=== PATIENT | male | born 2005 | race Hispanic/Latino ===

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

== ENCOUNTER 2025-01-13 07:13 | Emergency (ER) | payer OTHER, SELFPAY ==
--- OUTSIDE RECORDS SUMMARY | 2025-01-13 07:16 | XMS REPORT | Continuity of Care Document ---
Author Name Unknown Address [address] [place] [address] [place] [id number] Care Team Providers Care Customer Program Manager Name Role Phone Unavailable Unavailable Unavailable Encounters Start Date/Time End Date/Time Encounter Type Admission Type Attending Clinicians Care Facility Care Department Encounter ID Source 2020-06-05 00:00:00 2020-06-05 00:00:00 Outpatient [facility] [id number] [facility]
[2025-01-13 08:16] LABS: Absolute Lymphocytes (CBC) 2.5 K/uL (0.7-4.9); Hematocrit 40.3 % (39.6-49.0); Hemoglobin 13.8 g/dL (13.6-17.9); MCH 31.3 pg (27.0-35.0); MCHC 34.3 g/dL (32.0-36.0); MCV 91.1 fL (80-100); MPV 7.6 fL (7.6-11.3); Nucleated RBC Absolute Count 0.0 (0-0); Nucleated Red Blood Cells % 0.0 % (0-0); RBC Red Blood Cell Count 4.42 M/uL (4.33-5.43); White Blood Count 7.00 thou/uL (4.3-10.9)
[2025-01-13 08:32] LABS: Anion Gap 6.2 mEq/L (5.0-15.0); BUN Blood Urea Nitrogen 6.0 mg/dL (7-18); Glucose Level 93.0 mg/dL (74-106); Potassium 4.2 mEq/L (3.5-5.1)
--- NOTE | 2025-01-13 08:47 | ER ---
Nurse's Notes [facility] Name: Abdon Santos III Age: 19 yrs Sex: Male : 2005 Arrival Date: 01/13/2025 Time: 07:13 Bed 6 Private MD: Diagnosis: Rectal bleeding Presentation: 01/13 07:21 Chief complaint: Patient states: 3 episodes of rectal bleeding after having BM last ss night. Pt reports this has occurred before, and was seen at an ER in [place], but was told everything was normal. Denies pain at this time. Coronavirus screen: Client denies travel out of the [place] in the last 14 days. Ebola Screen: Patient denies exposure to infectious person. Patient denies travel to an Ebola-affected area in the 21 days before illness onset. Initial Sepsis Screen: Does the patient meet any 2 criteria? No. Patient's initial sepsis screen is negative. Does the patient have a suspected source of infection? No. Patient's initial sepsis screen is negative. Risk Assessment: Do you want to hurt yourself or someone else? Patient reports no desire to harm self or others. Onset of symptoms was January 12, 2025. 07:21 Method Of Arrival: Ambulatory ss 07:21 Acuity: BRANDON 3 ss Triage Assessment: 07:21 General: Appears in no apparent distress. Behavior is cooperative, appropriate for age, bp anxious. Pain: Denies pain. EENT: No deficits noted. Neuro: No deficits noted. Cardiovascular: No deficits noted. Respiratory: No deficits noted. GI: Reports rectal bleeding. : No signs and/or symptoms were reported regarding the genitourinary system. Derm: No deficits noted. Musculoskeletal: No deficits noted. Historical: - Allergies: 07:23 No Known Allergies; ss - Home Meds: 07:23 None [Active]; ss - PMHx: 07:23 None; ss - PSHx: 07:23 None; ss - Immunization history:: Adult Immunizations unknown. - Infectious Disease History:: Denies. - Social history:: Smoking status: Reported history of juuling and/or vaping. Screenin:44 [facility] ED Fall Risk Assessment (Adult) History of falling in the last 3 months, ph including since admission No falls in past 3 months (0 pts) Confusion or Disorientation No (0 pts) Intoxicated or Sedated No (0 pts) Impaired Gait No (0 pts) Mobility Assist Device Used No (0 pt) Altered Elimination No (0 pt) Score/Fall Risk Level 0 - 2 = Low Risk Oriented to surroundings, Maintained a safe environment, Hourly rounding (assess needs \T\ fall precautionary measures) done. Abuse screen: Denies threats or abuse. Denies injuries from another. Nutritional screening: No deficits noted. Tuberculosis screening: No symptoms or risk factors identified. Assessment: 07:43 General: Appears in no apparent distress. comfortable, well groomed, Behavior is calm, ph cooperative, appropriate for age. Pain: Denies pain. Neuro: Level of Consciousness is awake, alert, obeys commands, Oriented to person, place, time, situation. Cardiovascular: Capillary refill < 3 seconds in bilateral fingers Patient's skin is warm and dry. Respiratory: Airway is patent Respiratory effort is even, unlabored. GI: Reports rectal bleeding. Derm: Skin is pink, warm \T\ dry. Musculoskeletal: Circulation, motion, and sensation intact. Vital Signs: 07:21 Pulse 66; Resp 15; Pulse Ox 99% on R/A; Weight 77.11 kg; Height 5 ft. 6 in. ; Pain 0/10;ss 07:46 BP 132 / 86; Temp 97.8; ph 08:54 BP 121 / 79; Pulse 67; Resp 16; Temp 98; Pulse Ox 100% ; bp 07:21 Body Mass Index 27.44 (77.11 kg, 167.64 cm) ss 07:21 Pain Scale: Adult ss ED Course: 07:15 Patient arrived in ED. mr 07:15 Nazario Couch DO is Attending Physician. ms3 07:23 Triage completed. ss 07:23 Arm band placed on right wrist. ss 07:34 Zachary Diane, RN is Primary Nurse. bp 07:43 Served as a rubber compounder during rectal exam. ph 07:44 Patient has correct armband on for positive identification. Bed in low position. Call ph light in reach. Side rails up X 1. Pulse ox on. NIBP on. 08:08 Initial lab(s) drawn, by me, sent to lab. Inserted saline lock: 20 gauge in right bp antecubital area, using aseptic technique. Blood collected. Flushed with 10 mL NS. 08:46 Brandon Angeles MD is Referral Physician. ms3 08:54 IV discontinued, intact, bleeding controlled, No redness/swelling at site. Pressure bp dressing applied. Administered Medications: No medications were administered Medication: 07:44 VIS not applicable for this client. ph Outcome: 08:46 Discharge ordered by . ms3 08:54 Discharged to home ambulatory, with family, bp 08:54 Condition: stable 08:54 Discharge instructions given to patient, Instructed on discharge instructions, follow up and referral plans. Demonstrated understanding of instructions, follow-up care, 08:55 Patient left the ED. bp Signatures: Fanny Mejia, Bradley Reg mr Alicia Gould, RN RN ss Mimi Purcell RN RN ph Zachary Diane RN RN bp Nazario Couch DO DO ms3
--- NOTE | 2025-01-13 08:47 | EDPHYS ---
Physician Documentation [facility] Name: Abdon Santos III Age: 19 yrs Sex: Male : 2005 Arrival Date: 01/13/2025 Time: 07:13 Bed 6 Private MD: ED Physician Nazario Couch HPI: 01/13 08:05 This 19 yrs old Male presents to ER via Ambulatory with complaints of Rectal ms3 Bleeding. 08:05 19-year-old male with no past medical history presents to the emergency department for ms3 rectal bleeding for 3 episodes last night. Patient denies abdominal pain, diarrhea, nausea, vomiting, fevers, chills. Patient states he has had rectal bleeding intermittently for a while. Patient has seen other emergency departments in [place] where his workup was negative.. Historical: - Allergies: 07:23 No Known Allergies; ss - Home Meds: 07:23 None [Active]; ss - PMHx: 07:23 None; ss - PSHx: 07:23 None; ss - Immunization history:: Adult Immunizations unknown. - Infectious Disease History:: Denies. - Social history:: Smoking status: Reported history of juuling and/or vaping. ROS: 08:05 Constitutional: Negative for fever, and chills. Cardiovascular: Negative for chest ms3 pain, and palpitations. Respiratory: Negative for shortness of breath, cough, wheezing, and pleuritic chest pain, 08:05 MS/Extremity: Negative for injury and deformity, Skin: Negative for injury, rash, and discoloration, 08:05 Abdomen/GI: Positive for rectal bleeding, Exam: 08:05 Constitutional: This is a well developed, well nourished patient who is awake, alert, ms3 and in no acute distress. Cardiovascular: Regular rate and rhythm with a normal S1 and S2. No gallops, murmurs, or rubs. Normal PMI, no JVD. No pulse deficits. Respiratory: Lungs have equal breath sounds bilaterally, clear to auscultation and percussion. No rales, rhonchi or wheezes noted. No increased work of breathing, no retractions or nasal flaring. Skin: Warm, dry with normal turgor. Normal color with no rashes, no lesions, and no evidence of cellulitis. MS/ Extremity: Pulses equal, no cyanosis. Neurovascular intact. Full, normal range of motion. 08:05 Abdomen/GI: Inspection: abdomen appears normal, Bowel sounds: normal, in all quadrants, Palpation: abdomen is soft and non-tender, in all quadrants, Rectal exam: is unremarkable, rectal tone normal, Stool: brown, No gross blood noted on rectal exam, mass, is not appreciated, swelling, is not appreciated, tenderness, is not appreciated, the exam is chaperoned by the nurse, Vital Signs: 07:21 Pulse 66; Resp 15; Pulse Ox 99% on R/A; Weight 77.11 kg; Height 5 ft. 6 in. ; Pain 0/10;ss 07:46 BP 132 / 86; Temp 97.8; ph 08:54 BP 121 / 79; Pulse 67; Resp 16; Temp 98; Pulse Ox 100% ; bp 07:21 Body Mass Index 27.44 (77.11 kg, 167.64 cm) ss 07:21 Pain Scale: Adult ss MDM: 07:16 Medical Screening Exam initiated ms3 08:07 Differential diagnosis: hemorrhoids, Anemia versus rectal mass. ms3 08:49 Data reviewed: vital signs, nurses notes, lab test result(s), and as a result, I will ms3 discharge patient. Counseling: I had a detailed discussion with the patient and/or guardian regarding the historical points, exam findings, and any diagnostic results supporting the discharge/admit diagnosis, lab results, the need for outpatient follow up, to return to the emergency department if symptoms worsen or persist or if there are any questions or concerns that arise at home. Special discussion: I discussed with the patient/guardian in detail that at this point there is no indication for admission to the hospital. It is understood, however, that if the symptoms persist or worsen the patient needs to return immediately for re-evaluation. ED course: CBC without anemia. Patient without bloody bowel movements in the emergency department, stool brown on rectal exam. Patient's vital signs remained stable. Patient's abdomen is benign. Patient to follow-up with Dr. Vasquez in 2 to 3 days for reevaluation. All questions were answered. Return precautions discussed include worsening symptoms, or any other concerns.. 01/13 07:55 Order name: CBC with Diff; Complete Time: 08:42 ms3 01/13 07:55 Order name: BMP; Complete Time: 08:42 ms3 Administered Medications: No medications were administered Disposition Summary: 01/13/25 08:46 Discharge Ordered Notes: Location: Home ms3 Condition: Stable ms3 Diagnosis - Rectal bleeding ms3 Followup: ms3 - With: Brandon Angeles MD - When: 2 - 3 days - Reason: Recheck today's complaints Discharge Instructions: - Discharge Summary Sheet ms3 - Rectal Bleeding, [id number] ms3 Forms: - Medication Reconciliation Form ms3 - Antibiotic Education ms3 - Prescription Opioid Use ms3 - Patient Portal Instructions ms3 - Leadership Thank You Letter ms3 - Work release form bc6 Signatures: Dispatcher [employer] EDMS Alicia Gould RN RN ss Mimi Purcell RN RN ph Nazario Couch, DO ms3 Corrections: (The following items were deleted from the chart) 07:55 07:55 CBC+H.LAB.BRZ ordered. EDMS EDMS 07:55 07:55 BASIC METABOLIC PANEL+C.LAB.BRZ ordered. EDMS EDMS
[2025-01-13 10:12] VITALS: O2SAT 100
[2025-01-13 10:14] VITALS: BP 132/86; TEMP 97.8
== END 2025-01-13 08:55 | disposition home or self-care (01) ==
LOC: ER 07:13
DX: K62.5 Hemorrhage of anus and rectum (principal)
CPT/HCPCS: 36415; 80048; 85025; 99284